=== PATIENT | female | born 1975 | race Caucasian/White ===

== ENCOUNTER 2020-11-26 22:11 | Emergency (ER) | payer SELFPAY ==
[~2020-11-26] VITALS: Ht 162 cm; Wt 54.5 kg
--- OUTSIDE RECORDS SUMMARY | 2020-11-26 22:17 | XMS REPORT ---
Author Lakesha López Organization [facility] Address [address] [place], [place] [id number] Care Team Providers Care District Service Manager Name Role Phone Evie Villela PCP Allergies and Adverse Reactions Name Reaction Notes PENICILLINS Cipro amoxicillin morphine Plan of Treatment Planned Activity Comments Planned Date Planned Time Plan/Goal CT ABD AND PELVIS W/O CONTRAST 05/13/2020 12:00 AM US SOFT TISSUES HEAD AND NECK 11/19/2020 12:00 AM TSH 11/25/2020 12:00 AM T4 FREE 11/25/2020 12:00 AM T3 FREE 11/25/2020 12:00 AM Thyroid antibody panel 11/25/2020 12:00 AM Medications Name Start Date Expiration Date SIG Comments prednisone 20 mg oral tablet 12/21/2019 03/20/2020 jenifer e 1 to 2 tablet (20 mg) by oral route once daily as needed for flares pantoprazole 40 mg oral tablet,delayed release (DR/EC) 05/13/2020 07/12/2020 take 1 tablet (40 mg) by oral route once daily for 30 days Problem List Description Status Onset Polyarthralgia Active 03/25/2020 Acute pain of both shoulders Active 03/25/2020 Rheumatoid arthritis Active 03/25/2020 Gluten intolerance Active 03/25/2020 Knee pain, bilateral Active 03/25/2020 Vitamin D deficiency Active 03/25/2020 Vital Signs Date Time BP-Sys(mm[Hg] BP-Corina(mm[Hg]) HR(bpm) RR(rpm) Temp WT HT HC BMI BSA BMI Percentile O2 Sat(%) 09/12/2020 9:02:00 AM 106 mm[Hg] 78 mm[Hg] 86 {beats}/min 18 rpm 98.1 F 113.312 lbs 64 in 19.4498 kg/m2 1.5235 m2 99 % 08/27/2020 8:02:00 AM 118 mm[Hg] 80 mm[Hg] 116 lbs 64 in 19.91 kg/m2 1.54 m2 05/13/2020 10:22:00 AM 106 mm[Hg] 74 mm[Hg] 100 {beats}/min 18 rpm 98.2 F 116 lbs 64 in 19.91 kg/m2 1.54 m2 100 % 03/25/2020 9:46:00 AM 104 mm[Hg] 68 mm[Hg] 101 {beats}/min 18 rpm 97.9 F 121 lbs 64 in 20.7694 kg/m2 1.5743 m2 98 % 12/21/2019 10:07:00 AM 100 mm[Hg] 70 mm[Hg] 75 {beats}/min 18 rpm 98.2 F 123.312 lbs 64 in 21.1663 kg/m2 1.59 m2 98 % Social History Name Description Comments Tobacco Current every day smoker History of Procedures Date Ordered Description Order Status 03/25/2020 12:00 AM COMPLETE CBC W/AUTO DIFF WBC Reviewed 03/25/2020 12:00 AM COMPREHEN METABOLIC PANEL Reviewed 03/25/2020 12:00 AM ASSAY THYROID STIM HORMONE Reviewed 03/25/2020 12:00 AM ASSAY OF FREE THYROXINE Reviewed 03/25/2020 12:00 AM VITAMIN D 25 HYDROXY Reviewed 03/25/2020 12:00 AM ANTINUCLEAR ANTIBODIES YUSEF Reviewed 03/25/2020 12:00 AM C-REACTIVE PROTEIN Reviewed 03/25/2020 12:00 AM RBC SED RATE AUTOMATED Reviewed 03/25/2020 12:00 AM ROUTINE VENIPUNCTURE Reviewed 08/27/2020 12:00 AM Blood Pressure Check-no charge Reviewed 10/02/2020 12:00 AM COVID-19 Testing Reviewed 10/30/2020 12:00 AM COMPREHEN METABOLIC PANEL Reviewed 10/30/2020 12:00 AM PROTOZOA ANTIBODY NOS Returned 10/30/2020 12:00 AM LYME DISEASE ANTIBODY Returned 10/30/2020 12:00 AM EHRLICHIA ANTIBODY Returned 10/30/2020 12:00 AM ROUTINE VENIPUNCTURE Reviewed 10/30/2020 12:00 AM MRI BRAIN STEM W/O & W/DYE Returned 10/30/2020 12:00 AM MRI NECK SPINE W/O DYE Returned 11/25/2020 12:00 AM ROUTINE VENIPUNCTURE Reviewed Results Summary Date and Description Results 03/25/2020 10:50 AM GLUCOSE 95 SODIUM 138 POTASS IUM 4.4 CHLORIDE 109.0 mmol/LCO2 23 BUN 23.0 mg/dLCREATININE 0.640 mg/dLSGOT/AST 18 SGPT/ALT 13 ALK PHOS 76 TOTAL PROTEIN 6.8 ALBUMIN 3.7 TOTAL BILI 0.4 CALCIUM 9.70 mg/dLAGE 44 GFR NonAA 102 GFR AA 124 eGFR 102 mL/min/1.73meGFR AA* >60 mL/min/1.73mTSH 0.51 FREE T4 1.08 VITAMIN D 28.3 C REACTIVE PROTEIN 2.0 mg/dLSEDRATE 22 WBC 5.7 RBC 5.08 HGB 15.50 g/dLHCT 46.10 %MCV 91.0 fLMCH 30.50 pgMCHC 33.60 g/dLRDW SD 41 %RDW CV 12.40 %MPV 10.70 fLPLT 243 x10E3/uLNRBC# 0.00 NRBC% 0.0 %NEUT 60.8 %LYMP 28.6 %MONO 7.6 %EOS 2.1 %BASO 0.7 #NEUT 3.45 #LYMP 1.62 #MONO 0.43 #EOS 0.12 #BASO 0.04 MANUAL DIFF NOT IND YUSEF Direct Positive Anti-DNA (DS) Ab Qn 1 ORACLE FUSION DEVELOPER Antibodies >8.0 Villela Antibodies 3.1 Sjogren's Anti-SS-A <0.2 Sjogren's Anti-SS-B <0.2 See below: COMMENT 10/02/2020 3:06 PM [id number] DETECTED 10/30/2020 9:15 AM GLUCOSE 88 SODIUM 140 POTASS IUM 4.4 CHLORIDE 101.0 mmol/LCO2 28 BUN 18.0 mg/dLCREATININE 0.50 mg/dLSGOT/AST 31 SGPT/ALT 17 ALK PHOS 88 TOTAL PROTEIN 6.9 ALBUMIN 3.7 TOTAL BILI 0.5 CALCIUM 9.90 mg/dLAGE 45 GFR NonAA 135 GFR AA 164 eGFR 135 mL/min/1.73meGFR AA* >60 mL/min/1.73m History Of Immunizations Not available. History of Past Illness Name Date of Onset Comments Rheumatoid arthritis 03/25/2020 Polyarthralgia 03/25/2020 Acute pain of both shoulders 03/25/2020 Gluten intolerance 03/25/2020 Knee pain, bilateral 03/25/2020 Vitamin D deficiency 03/25/2020 Rheumatoid arthritis Dec 21 2019 10:16AM Migraine Dec 21 2019 10:16AM Tension Headache Dec 21 2019 10:16AM Situational stress Dec 21 2019 10:16AM Polyarthralgia Feb 2020 9:47AM Pain in right shoulder Feb 2020 9:47AM Pain in left shoulder Feb 2020 9:47AM Rheumatoid arthritis Feb 2020 9:47AM Gluten intolerance Feb 2020 9:47AM Pain in right knee Feb 2020 9:47AM Pain in left knee Feb 2020 9:47AM Pain in right shoulder Feb 2020 10:17AM Pain in left shoulder Feb 2020 10:17AM Gluten intolerance Feb 2020 10:17AM Pain in right knee Feb 2020 10:17AM Pain in left knee Feb 2020 10:17AM Polyarthralgia Feb 2020 10:17AM Rheumatoid arthritis Feb 2020 10:17AM Dizziness Feb 2020 10:17AM Vitamin D deficiency Feb 2020 10:17AM Fatigue Feb 2020 10:17AM Hair loss Feb 2020 10:17AM Cyst of ear canal May 13 2020 10:26AM Epigastric abdominal pain May 13 2020 10:26AM Left upper quadrant abdominal pain May 13 2020 10:26AM Hypertension, Benign Essential Aug 27 2020 8:06AM Rheumatoid arthritis Sep 12 2020 9:06AM Vitamin D deficiency Sep 12 2020 9:06AM Headache Sep 12 2020 9:06AM Hot flashes Sep 12 2020 9:06AM Encounter for laboratory testing for COVID-19 virus Oct 02 11:06AM Sore throat Oct 02 2020 11:06AM Polyarthralgia Oct 30 2020 9:11AM Fatigue Oct 30 2020 9:11AM Bitten or stung by nonvenomous insect an d other nonvenomous arthropods, initial encounter Sep 2020 9:11AM Headache Oct 30 2020 9:14AM Dizziness Oct 30 2020 9:14AM Rheumatoid arteritis Sep 2020 9:14AM Cervical radicular pain Oct 30 2020 9:14AM Thyroid nodule Nov 19 2020 12:37PM Goiter Nov 19 2020 12:37PM Goiter Nov 19 2020 12:38PM Thyroid nodule Nov 19 2020 12:38PM Payers Insurance Name Company Name Plan Name Plan Number Policy Number Isaac cy Group Number Start Date [facility] - COVID 19 Test [id number] N/A History of Encounters Visit Date Visit Type Provider 11/25/2020 Laboratory Evie Villela APRN 10/30/2020 Laboratory Evie Villela APRN 10/03/2020 Laboratory Evie Villela APRN 09/12/2020 Office visit Evie Villela APRN 08/27/2020 Nurse visit Marlene GARG RN 05/13/2020 Office visit Marlene GARG RN 03/25/2020 Office visit Evie Villela APRN 12/21/2019 Office visit Evie Villela APRN
--- OUTSIDE RECORDS SUMMARY | 2020-11-26 22:17 | XMS REPORT ---
Author Author Lakesha Villela Organization [facility] Address [address] [place], [place] [id number] Care Team Providers Care Seating Upholsterer Name Role Phone Evie Villela PCP Allergies and Adverse Reactions Name Reaction Notes PENICILLINS Cipro amoxicillin morphine Plan of Treatment Planned Activity Comments Planned Date Planned Time Plan/Goal CT ABD AND PELVIS W/O CONTRAST 05/13/2020 12:00 AM Tick-borne disease panel 10/30/2020 12:00 AM Tick-borne disease panel 10/30/2020 12:00 AM Tick-borne disease panel 10/30/2020 12:00 AM MRI BRAIN INC STEM W/WO CONTRAST 10/30/2020 12:00 AM MRI CERVICAL SPINE W/O CONTRAST 10/30/2020 12:00 AM Medications Name Start Date Expiration [...] COMPREHEN METABOLIC PANEL Reviewed 10/30/2020 12:00 AM ROUTINE VENIPUNCTURE Reviewed Results Summary [...] Direct Positive Anti-DNA (DS) Ab Qn 1 LABORER/KEY MAN Antibodies >8.0 Villela Antibodies 3.1 Sjogren's Anti-SS-A <0.2 Sjogren's Anti-SS-B <0.2 See below: COMMENT 10/02/2020 3:06 PM [id number] DETECTED 10/30/2020 9:15 AM GLUCOSE 88 SODIUM [...] 10:17AM Fatigue Feb 2020 10:17AM Hair loss b 2020 10:17AM Cyst of ear canal May [...] an d other nonvenomous arthropods, initial encounter Oct 30 2020 9:11AM Headache Oct 30 2020 9:14AM Dizziness Oct 30 2020 9:14AM Rheumatoid arteritis Oct 30 2020 9:14AM Cervical radicular pain Oct 30 2020 9:14AM Payers Insurance Name Company Name Plan Name Plan Number Policy Number Isaac cy Group Number Start Date [employer] [place] [facility] - COVID 19 Test [id number] N/A History of Encounters Visit Date Visit Type Provider 10/30/2020 Laboratory Evie Villela APRN 10/03/2020 Laboratory Evie Villela APRN 09/12/2020 Office visit Evie Villela APRN 08/27/2020 Nurse visit Marlene GARG RN 05/13/2020 Office visit Marlene GARG RN 03/25/2020 Office visit Evie Villela APRN 12/21/2019 Office visit Evie Villela APRN
--- OUTSIDE RECORDS SUMMARY | 2020-11-26 22:17 | XMS REPORT ---
Author Lakesha López Organization [facility] Address [address] [place], [place] [id number] Care Team Providers Care Fabric Machine Operator Name Role Phone Evie Villela PCP Allergies and Adverse Reactions Name Reaction Notes PENICILLINS Cipro amoxicillin morphine Plan of Treatment Planned Activity Comments Planned Date Planned Time Plan/Goal CT ABD AND PELVIS W/O CONTRAST 05/13/2020 12:00 AM TSH 11/19/2020 12:00 AM T4 FREE 11/19/2020 12:00 AM T3 FREE 11/19/2020 12:00 AM Thyroid antibody panel 11/19/2020 12:00 AM US SOFT TISSUES HEAD AND NECK 11/19/2020 12:00 AM Medications Name Start Date Expiration [...] AM MRI NECK SPINE W/O DYE Returned Results Summary Date and Description Results 03/25/2020 [...] Direct Positive Anti-DNA (DS) Ab Qn 1 SOCIOLOGY ADJUNCT INSTRUCTOR Antibodies >8.0 Villela Antibodies 3.1 Sjogren's Anti-SS-A <0.2 Sjogren's Anti-SS-B <0.2 See below: COMMENT 10/02/2020 3:06 PM [id number] DETECTED 10/30/2020 9:15 AM GLUCOSE 88 SODIUM [...] Sore throat Oct 02 2020 11:06AM Polyarthralgia Sep 2020 9:11AM Fatigue Sep 2020 9:11AM Bitten or stung by nonvenomous insect an d other nonvenomous arthropods, initial encounter Sep 2020 9:11AM Headache Sep 2020 9:14AM Dizziness Sep 2020 9:14AM Rheumatoid arteritis Sep 2020 9:14AM Cervical radicular pain Sep 2020 9:14AM Thyroid nodule Nov 19 2020 12:37PM Goiter Nov 19 2020 12:37PM Goiter Nov 19 2020 12:38PM Thyroid nodule Nov 19 2020 12:38PM Payers Insurance Name Company Name Plan Name Plan Number Policy Number Isaac cy Group Number Start Date [facility] - COVID 19 Test [id number] N/A History of Encounters Visit Date Visit Type Provider 10/30/2020 Laboratory Evie Villela APRN 10/03/2020 Laboratory Evie Villela APRN 09/12/2020 Office visit Evie Villela APRN 08/27/2020 Nurse visit Marlene GARG RN 05/13/2020 Office visit Marlene GARG RN 03/25/2020 Office visit Evie Villela APRN 12/21/2019 Office visit Evie Villela APRN
--- OUTSIDE RECORDS SUMMARY | 2020-11-26 22:17 | XMS REPORT ---
Author Lakesha López Organization [facility] Address [address] [place], [place] [id number] Care Team Providers Care Supervisor Home Restoration Service Name Role Phone Evie Villela PCP Allergies and Adverse Reactions Name Reaction Notes PENICILLINS Cipro amoxicillin morphine Plan of Treatment Planned Activity Comments Planned Date Planned Time Plan/Goal CT ABD AND PELVIS W/O CONTRAST 05/13/2020 12:00 AM TSH 11/19/2020 12:00 AM T4 FREE 11/19/2020 12:00 AM T3 FREE 11/19/2020 12:00 AM Thyroid antibody panel 11/19/2020 12:00 AM Medications Name Start Date [...] AM COVID-19 Testing Reviewed 10/30/2020 12:00 AM [employer]EN METABOLIC PANEL Reviewed 10/30/2020 12:00 AM PROTOZOA [...] Direct Positive Anti-DNA (DS) Ab Qn 1 CIGARETTE MACHINES MECHANIC Antibodies >8.0 Villela Antibodies 3.1 Sjogren's Anti-SS-A <0.2 Sjogren's Anti-SS-B <0.2 See below: COMMENT 10/02/2020 3:06 PM [id number] DETECTED 10/30/2020 9:15 AM GLUCOSE 88 SODIUM [...] 2020 11:06AM Polyarthralgia Sep 2020 9:11AM Fatigue Oct 30 2020 9:11AM Bitten or stung by nonvenomous insect an d other nonvenomous arthropods, initial encounter Oct 30 2020 9:11AM Headache Oct 30 2020 9:14AM Dizziness Oct 30 2020 9:14AM Rheumatoid arteritis Sep 2020 9:14AM Cervical radicular pain Sep 2020 9:14AM Thyroid nodule Nov 19 2020 12:37PM Goiter Sep 2020 12:37PM Payers Insurance Name Company Name Plan Name Plan Number Policy Number Isaac cy Group Number Start Date [employer] [facility] 19 Test [id number] N/A History of Encounters Visit Date Visit Type Provider 10/30/2020 Laboratory Evie Villela APRN 10/03/2020 Laboratory Evie Villela APRN 09/12/2020 Office visit Evie Villela INTERACTIVE DESIGNER 08/27/2020 Nurse visit Marlene GARG RN 05/13/2020 Office visit Marlene GARG RN 03/25/2020 Office visit Evie Villela INTERACTIVE DESIGNER 12/21/2019 Office visit Evie Villela APRN
--- OUTSIDE RECORDS SUMMARY | 2020-11-26 22:17 | XMS REPORT ---
Author Lakesha López Organization [facility] Address [address] [place], [place] [address] Care Team Providers Care Wireless Sales Manager Name Role Phone Evie Villela PCP [...] Direct Positive Anti-DNA (DS) Ab Qn 1 SERVICE OPERATOR Antibodies >8.0 Villela Antibodies 3.1 Sjogren's Anti-SS-A <0.2 Sjogren's Anti-SS-B <0.2 See below: COMMENT 10/02/2020 3:06 PM [id number] DETECTED 10/30/2020 9:15 AM GLUCOSE 88 SODIUM [...] Number Isaac cy Group Number Start Date [facility] - COVID 19 Test [id number] N/A History of Encounters Visit Date Visit Type Provider 11/25/2020 Laboratory Evie Villela APRN 10/30/2020 Laboratory Evie Villela APRN 10/03/2020 Laboratory Evie Villela APRN 09/12/2020 Office visit Evie Villela APRN 08/27/2020 Nurse visit Marlene GARG RN 05/13/2020 Office visit Marlene GARG RN 03/25/2020 Office visit Evie Villela APRN 12/21/2019 Office visit Evie Villela APRN
--- OUTSIDE RECORDS SUMMARY | 2020-11-26 22:17 | XMS REPORT ---
Author Author Lakesha Villela Organization [facility] Address [address] [place], [place] [address] Care Team Providers Care Document Management Consultant Name Role Phone Evie Villela PCP Allergies [...] Direct Positive Anti-DNA (DS) Ab Qn 1 GEOGRAPHY TEACHER Antibodies >8.0 Villela Antibodies 3.1 Sjogren's Anti-SS-A <0.2 Sjogren's Anti-SS-B <0.2 See below: COMMENT 10/02/2020 3:06 PM [id number] DETECTED 10/30/2020 9:15 AM GLUCOSE 88 SODIUM [...] Number Isaac cy Group Number Start Date [facility] - COVID 19 Test [id number] N/A History of Encounters Visit Date Visit Type Provider 10/30/2020 Laboratory Evie Villela APRN 10/03/2020 Laboratory Evie Villela APRN 09/12/2020 Office visit Evie Villela APRN 08/27/2020 Nurse visit Marlene GARG RN 05/13/2020 Office visit Marlene GARG RN 03/25/2020 Office visit Evie Villela APRN 12/21/2019 Office visit Evie Villela APRN
--- OUTSIDE RECORDS SUMMARY | 2020-11-26 22:17 | XMS REPORT ---
Author Author Lakesha Villela Organization [facility] Address [address] [place], [place] [id number] Care Team Providers Care Release Of Information Specialist Name Role Phone Evie Villela PCP Allergies and Adverse Reactions Name Reaction Notes PENICILLINS Cipro amoxicillin morphine Plan of Treatment Planned Activity Comments Planned Date Planned Time Plan/Goal CT ABD AND PELVIS W/O CONTRAST 05/13/2020 12:00 AM MRI BRAIN INC STEM W/WO [...] AM COVID-19 Testing Reviewed 10/30/2020 12:00 AM [employer] METABOLIC PANEL Reviewed 10/30/2020 12:00 AM PROTOZOA ANTIBODY NOS Returned 10/30/2020 12:00 AM LYME DISEASE ANTIBODY Returned 10/30/2020 12:00 AM EHRLICHIA ANTIBODY Returned 10/30/2020 12:00 AM ROUTINE VENIPUNCTURE Reviewed Results [...] Direct Positive Anti-DNA (DS) Ab Qn 1 FIELD CARE MANAGER Antibodies >8.0 Villela Antibodies 3.1 Sjogren's Anti-SS-A <0.2 Sjogren's Anti-SS-B <0.2 See below: COMMENT 10/02/2020 3:06 PM [id number] DETECTED 10/30/2020 9:15 AM GLUCOSE 88 SODIUM [...] Number Isaac cy Group Number Start Date [email or web address] [facility] - COVID 19 Test [id number] N/A History of Encounters Visit Date Visit Type Provider 10/30/2020 Laboratory Evie Villela APRN 10/03/2020 Laboratory Evie Villela APRN 09/12/2020 Office visit Evie Villela APRN 08/27/2020 Nurse visit Marlene GARG RN 05/13/2020 Office visit Marlene GARG RN 03/25/2020 Office visit Evie Villela APRN 12/21/2019 Office visit Evie Villela APRN
--- OUTSIDE RECORDS SUMMARY | 2020-11-26 22:18 | XMS REPORT ---
Author Author Lakesha Villela Organization [facility] Address [address] [place], [place] [address] Care Team Providers Care Email Designer Name Role Phone Evie Villela PCP Allergies and Adverse Reactions Name Reaction Notes PENICILLINS Cipro amoxicillin morphine Plan of Treatment Planned Activity Comments Planned Date Planned Time Plan/Goal CT ABD AND PELVIS W/O CONTRAST 05/13/2020 12:00 AM CMP 10/30/2020 12:00 AM Tick-borne disease panel 10/30/2020 12:00 AM Tick-borne disease panel 10/30/2020 12:00 AM Tick-borne disease panel 10/30/2020 12:00 AM Medications Name Start Date [...] AM COVID-19 Testing Reviewed 10/30/2020 12:00 AM ROUTINE VENIPUNCTURE Reviewed [...] 1.08 VITAMIN D 28.3 C REACTIVE PROTEIN 20.0 mg/LSEDRATE 22 WBC 5.7 RBC 5.08 HGB 15.50 g/dLHCT 46.10 %MCV 91.0 fLMCH 30.50 pgMCHC 33.60 g/dLRDW SD 41 %RDW CV 12.40 %MPV 10.70 fLPLT 243 x10E3/uLNRBC# 0.00 NRBC% 0.0 %NEUT 60.8 %LYMP 28.6 %MONO 7.6 %EOS 2.1 %BASO 0.7 #NEUT 3.45 #LYMP 1.62 #MONO 0.43 #EOS 0.12 #BASO 0.04 MANUAL DIFF NOT IND YUSEF Direct Positive Anti-DNA (DS) Ab Qn 1 INFRASTRUCTURE DIRECTOR Antibodies >8.0 Villela Antibodies 3.1 Sjogren's Anti-SS-A <0.2 Sjogren's Anti-SS-B <0.2 See below: COMMENT 10/02/2020 3:06 PM [id number] DETECTED History Of Immunizations Not available. History of Past Illness Name Date of Onset Comments Rheumatoid arthritis 03/25/2020 Polyarthralgia 03/25/2020 Acute pain of both shoulders 03/25/2020 Gluten intolerance 03/25/2020 Knee pain, bilateral 03/25/2020 Vitamin D deficiency 03/25/2020 Rheumatoid arthritis Dec 21 2019 10:16AM Migraine Dec 21 2019 10:16AM Tension Headache Dec 21 2019 10:16AM Situational stress Dec 21 2019 10:16AM Polyarthralgia b 2020 9:47AM Pain in right shoulder b 2020 9:47AM Pain in left shoulder b 2020 9:47AM Rheumatoid arthritis b 2020 9:47AM Gluten intolerance b 2020 9:47AM Pain in right knee b 2020 9:47AM Pain in left knee b 2020 9:47AM Pain in right shoulder b 2020 10:17AM Pain in left shoulder b 2020 10:17AM Gluten intolerance b 2020 10:17AM Pain in right knee b 2020 10:17AM Pain in left knee b 2020 10:17AM Polyarthralgia Mar 25 2020 10:17AM Rheumatoid arthritis Mar 25 2020 10:17AM Dizziness Mar 25 2020 10:17AM Vitamin D deficiency Mar 25 2020 10:17AM Fatigue Mar 25 2020 10:17AM Hair loss Mar 25 2020 10:17AM Cyst of ear canal May [...] arthropods, initial encounter Oct 30 2020 9:11AM Payers Insurance Name Company Name Plan Name Plan Number Policy Number Isaac cy Group Number Start Date [employer] - COVID 19 Test [id number] N/A History of Encounters Visit Date Visit Type Provider 10/30/2020 Laboratory Evie Villela APRN 10/03/2020 Laboratory Evie Villela APRN 09/12/2020 Office visit Evie Villela APRN 08/27/2020 Nurse visit Marlene GARG RN 05/13/2020 Office visit Marlene GARG RN 03/25/2020 Office visit Evie Villela APRN 12/21/2019 Office visit Evie Villela APRN
--- OUTSIDE RECORDS SUMMARY | 2020-11-26 22:18 | XMS REPORT ---
Author Author Lakesha Villela Organization [facility] Address [address] [place], [place] [phone] Care Team Providers Care Instrument Lens Grinder Apprentice Name Role Phone Evie Villela PCP Allergies and Adverse Reactions Name Reaction Notes PENICILLINS Cipro amoxicillin morphine Plan of Treatment Planned Activity Comments Planned Date Planned Time Plan/Goal CT ABD AND PELVIS W/O CONTRAST 05/13/2020 12:00 AM Medications Name Start Date Expiration [...] 12:00 AM Blood Pressure Check-no charge Reviewed Results Summary Date and Description Results [...] Direct Positive Anti-DNA (DS) Ab Qn 1 AUGER MACHINE OFFBEARER Antibodies >8.0 V[place]la Antibodies 3.1 Sjogren's Anti-SS-A <0.2 Sjogren's Anti-SS-B <0.2 See below: COMMENT History Of Immunizations Not available. History of [...] Feb 2020 9:47AM Pain in right shoulder b 2020 9:47AM Pain in left shoulder b 2020 9:47AM Rheumatoid arthritis b 2020 9:47AM Gluten intolerance b 2020 9:47AM Pain in right knee b 2020 9:47AM Pain in left knee b 2020 9:47AM Pain in right shoulder Feb 2020 10:17AM Pain in left shoulder b 2020 10:17AM Gluten intolerance b 2020 10:17AM Pain in right knee b 2020 10:17AM Pain in left knee b 2020 10:17AM Polyarthralgia b 2020 10:17AM Rheumatoid arthritis b 2020 10:17AM Dizziness Mar 25 2020 10:17AM [...] 11:06AM Sore throat Oct 02 2020 11:06AM Payers Not available. History of Encounters Visit Date Visit Type Provider 10/03/2020 Laboratory Evie Villela APRN 09/12/2020 Office visit Evie Villela APRN 08/27/2020 Nurse visit Marlene GARG RN 05/13/2020 Office visit Marlene GARG RN 03/25/2020 Office visit Evie Villela APRN 12/21/2019 Office visit Evie Villela APRN
--- OUTSIDE RECORDS SUMMARY | 2020-11-26 22:18 | XMS REPORT ---
Author Author Lakesha Villela Organization [facility] Address [address] [place], [place] [address] Care Team Providers Care Applications Instructor Name Role Phone Evie Villlea PCP Allergies and Adverse Reactions Name Reaction [...] Direct Positive Anti-DNA (DS) Ab Qn 1 SANDAL PARTS ASSEMBLER Antibodies >8.0 V[place]la Antibodies 3.1 Sjogren's Anti-SS-A [...]
--- OUTSIDE RECORDS SUMMARY | 2020-11-26 22:18 | XMS REPORT ---
Author Author Lakesha Villela Organization [facility] Address [address] [place], [place] [address] Care Team Providers Care Fur Blower Operator Name Role Phone Evie Villela PCP [...] INC STEM W/WO CONTRAST 10/30/2020 12:00 AM Medications Name Start [...] Direct Positive Anti-DNA (DS) Ab Qn 1 SEAMSTRESS FITTER Antibodies >8.0 V[place]la Antibodies 3.1 Sjogren's Anti-SS-A <0.2 Sjogren's Anti-SS-B <0.2 See below: COMMENT 10/02/2020 3:06 PM [id number] DETECTED History Of Immunizations Not available. History [...] b 2020 10:17AM Pain in left knee Feb 2020 10:17AM Polyarthralgia Feb 2020 10:17AM Rheumatoid arthritis b 2020 10:17AM Dizziness b 2020 10:17AM Vitamin D deficiency b 2020 10:17AM Fatigue b 2020 10:17AM Hair loss b 2020 10:17AM [...] 9:14AM Rheumatoid arteritis Oct 30 2020 9:14AM Payers Insurance Name Company Name Plan Name Plan Number Policy Number Isaac cy Group Number [facility] [place] [facility] Test [id number] N/A History of Encounters Visit Date Visit Type Provider 10/30/2020 Laboratory Evie Villela APRN 10/03/2020 Laboratory Evie Villela APRN 09/12/2020 Office visit Evie Villela APRN 08/27/2020 Nurse visit Marlene GARG RN 05/13/2020 Office visit Marlene GARG RN 03/25/2020 Office visit Evie Villela APRN 12/21/2019 Office visit Evie Villela APRN
--- OUTSIDE RECORDS SUMMARY | 2020-11-26 22:18 | XMS REPORT ---
Author Author Lakesha Villela Organization [facility] Address [address] [place], [place] [id number] Care Team Providers Care Shuttleless Loom Weaver Name Role Phone Evie Villela PCP Allergies [...] Reviewed 10/02/2020 12:00 AM COVID-19 Testing Reviewed Results Summary Date and Description Results [...] Direct Positive Anti-DNA (DS) Ab Qn 1 CENTRAL SUPPLY SUPERVISOR Antibodies >8.0 Villela Antibodies 3.1 Sjogren's Anti-SS-A <0.2 Sjogren's Anti-SS-B <0.2 See below: COMMENT 10/02/2020 3:06 PM [id number] DETECTED History Of Immunizations Not available. History [...] b 2020 10:17AM Pain in left shoulder Feb 2020 10:17AM Gluten intolerance b 2020 10:17AM Pain in right knee Feb 2020 10:17AM Pain in left knee b 2020 10:17AM Polyarthralgia b 2020 10:17AM Rheumatoid arthritis b 2020 10:17AM Dizziness b 2020 10:17AM Vitamin D deficiency Mar 25 2020 10:17AM Fatigue b 2020 10:17AM Hair [...] Sore throat Oct 02 2020 11:06AM Payers Insurance Name Company Name Plan Name Plan Number Policy Number Isaac cy Group Number Start Date [employer] - COVID 19 Test [id number] N/A History of Encounters Visit Date Visit Type Provider 10/03/2020 Laboratory Evie Villela APRN 09/12/2020 Office visit Evie Villela APRN 08/27/2020 Nurse visit Marlene GARG RN 05/13/2020 Office visit Marlene GARG RN 03/25/2020 Office visit Evie Villela APRN 12/21/2019 Office visit Evie Villela APRN
--- OUTSIDE RECORDS SUMMARY | 2020-11-26 22:18 | XMS REPORT ---
Author Author Lakesha Villela Organization [facility] Address [address] [place], [place] [id number] Care Team Providers Care Cad Programmer Name Role Phone Evie Villela PCP Allergies [...] AM COVID-19 Testing Reviewed 10/30/2020 12:00 AM [employer] METABOLIC PANEL Reviewed 10/30/2020 12:00 AM ROUTINE [...] Direct Positive Anti-DNA (DS) Ab Qn 1 ENERGY ADVISOR Antibodies >8.0 V[place]la Antibodies 3.1 Sjogren's Anti-SS-A <0.2 Sjogren's Anti-SS-B <0.2 See below: COMMENT 10/02/2020 3:06 PM [id number] DETECTED 10/30/2020 9:15 AM GLUCOSE 88 SODIUM [...] Situational stress Dec 21 2019 10:16AM Polyarthralgia Mar 25 2020 9:47AM Pain in right shoulder Mar 25 2020 9:47AM Pain in left shoulder Feb [...] 10:17AM Fatigue b 2020 10:17AM Hair loss Feb 2020 10:17AM [...] Number Isaac cy Group Number Start Date Equals[employer] - COVID 19 Test [id number] N/A History of Encounters Visit Date Visit Type Provider 10/30/2020 Laboratory Evie Villela DRY WALL PLASTERER 10/03/2020 Laboratory Evie Villela DRY WALL PLASTERER 09/12/2020 Office visit Evie Villela DRY WALL PLASTERER 08/27/2020 Nurse visit Marlene GARG RN 05/13/2020 Office visit Marlene GARG RN 03/25/2020 Office visit Evie Villela APRN 12/21/2019 Office visit Evie Villela APRN
--- OUTSIDE RECORDS SUMMARY | 2020-11-26 22:18 | XMS REPORT ---
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 History [...] 25 2020 9:47AM Pain in right shoulder b 2020 9:47AM Pain in left shoulder b 2020 9:47AM Rheumatoid arthritis Mar 25 2020 9:47AM Gluten intolerance Mar 25 2020 9:47AM Pain in right knee b 2020 9:47AM Pain in left knee b 2020 9:47AM Pain in right shoulder b 2020 10:17AM Pain in left shoulder b 2020 10:17AM Gluten intolerance b 2020 10:17AM Pain in right knee b 2020 10:17AM Pain in left knee Feb 2020 10:17AM Polyarthralgia Feb 2020 10:17AM Rheumatoid arthritis Feb 2020 10:17AM Dizziness b 2020 10:17AM Vitamin D deficiency Feb 2020 10:17AM Fatigue b 2020 10:17AM Hair [...] Number Isaac cy Group Number Start Date [place] - COVID 19 Test [id number] N/A History of Encounters Visit Date Visit Type Provider 10/30/2020 Laboratory Evie Villela APRN 10/03/2020 Laboratory Evie Villela APRN 09/12/2020 Office visit Evie Villela APRN 08/27/2020 Nurse visit Marlene GARG RN 05/13/2020 Office visit Marlene GARG RN 03/25/2020 Office visit Evie Villela APRN 12/21/2019 Office visit Evie Villela APRN
[2020-11-26 22:50] LABS: BASOPHILS % (AUTO) 1 % (0-10); EOSINOPHILS # (AUTO) 0.1 10^3/uL (0.0-0.3); EOSINOPHILS % (AUTO) 2 % (0-10); HEMATOCRIT 39 % (35-52); HEMOGLOBIN 13.3 g/dL (11.5-16.0); LYMPHOCYTES # (AUTO) 1.7 10^3/uL (1.0-4.0); LYMPHOCYTES % (AUTO) 28 % (12-44); MEAN CORPUSCULAR HEMOGLOBIN 31 pg (25-34); MEAN CORPUSCULAR HGB CONC 34 g/dL (32-36); MEAN CORPUSCULAR VOLUME 91 fL (80-99); MEAN PLATELET VOLUME 9.8 fL (9.0-12.2); MONOCYTES # (AUTO) 0.7 10^3/uL (0.0-1.0); MONOCYTES % (AUTO) 12 % (0-12); NEUTROPHILS # (AUTO) 3.4 10^3/uL (1.8-7.8); NEUTROPHILS % (AUTO) 57 % (42-75); PLATELET COUNT 217 10^3/uL (130-400); WHITE BLOOD COUNT 5.9 10^3/uL (4.3-11.0)
[2020-11-26 22:59] LABS: ALBUMIN 3.5 GM/DL (3.2-4.5); CHLORIDE 108 MMOL/L (98-107); POTASSIUM 3.9 MMOL/L (3.6-5.0); SODIUM 140 MMOL/L (135-145)
[2020-11-26 23:00] LABS: CALCIUM 9.7 MG/DL (8.5-10.1); PROTHROMBIN TIME PATIENT 13.8 SEC (12.2-14.7)
[2020-11-26 23:01] LABS: GLUCOSE 102 MG/DL (70-105); TOTAL PROTEIN 6.7 GM/DL (6.4-8.2)
[2020-11-26 23:02] LABS: CARBON DIOXIDE 21 MMOL/L (21-32)
[2020-11-26 23:03] LABS: BILIRUBIN,TOTAL 0.4 MG/DL (0.1-1.0)
[2020-11-26 23:05] LABS: ALKALINE PHOSPHATASE 81 U/L (40-136); CREATININE SERUM 0.68 MG/DL (0.60-1.30); GFR ESTIMATED 94
[2020-11-26 23:06] LABS: BUN/CREATININE RATIO 12
[2020-11-26 23:08] LABS: ALANINE AMINOTRANSFERASE 11 U/L (0-55); MAGNESIUM 1.7 MG/DL (1.6-2.4)
--- NOTE | 2020-11-26 23:13 | Diagnostic Imaging Report ---
INDICATION: Chest pain FINDINGS: The lungs are clear. No failure, effusion or pneumothorax. IMPRESSION: No acute appearing abnormality. Dictated by: Dictated on workstation # [id number]
[2020-11-26] MEDS ORDERED: LACTATED RINGERS 1,000 ML IV SCH (23:15)
--- NOTE | 2020-11-26 23:57 | ED Cardiac General ---
History of Present Illness General Chief Complaint: Cardiac/General Problems Stated Complaint: IRREGULAR HEART RATE Nursing Triage Note: PT PRESENTS TO THE ED C/O IRREGULAR HEART SENSATIONS THAT THE PATIENT DESCRIBES INTERMITTENT HARD THUMPS THAT ARE PERSISTENT FOR THE LAST FOUR DAYS. PT STATES SHE HAS A HX OF R.A AND HAS ALL THE MARKERS FOR LUPUS WELL NODULES ON HER THYROID. STATES HER PCP IS CURRENTLY PROCESSING A THYROID PANEL. DENIES CP. SOB, COLD OR COUGH Source: patient Exam Limitations: no limitations History of Present Illness Date Seen by Provider: Nov 26, 2020 Time Seen by Provider: 22:30 Initial Comments This 45-year-old woman presents to the emergency room with complaints of persistent palpitations. They have been present for a few weeks but worse over the last few days. She describes a recurrent heavy premature heartbeat followed by a pause. She denies any chest pain or shortness of breath. She is presently under work-up for thyroid nodules. Her primary care provider is Evie Villela. Her imaging studies have been done in [place]. She describes an unintentional 20 pound weight loss over the past year and some occasional dizziness. Allergies and Home Medications Allergies Coded Allergies: Penicillins (Verified Allergy, Severe, 11/26/20) ciprofloxacin (Verified Allergy, Severe, 11/26/20) morphine (Verified Adverse Reaction, Intermediate, 11/26/20) Patient Home Medication List Home Medication List Reviewed: Yes Review of Systems Review of Systems Constitutional: weight loss EENTM: No Symptoms Reported Respiratory: No Symptoms Reported Cardiovascular: See HPI Gastrointestinal: No Symptoms Reported Genitourinary: No Symptoms Reported Musculoskeletal: no symptoms reported Skin: no symptoms reported Psychiatric/Neurological: See HPI Endocrine: See HPI Hematologic/Lymphatic: No Symptoms Reported Past Whiyklf-Obocqe-Hxeqvn Hx Patient Social History Tobacco Use?: Yes Tobacco type used: Cigarettes Smoking Status: Current Everyday Smoker Substance use?: No Alcohol Use?: No Immunizations Up To Date Influenza Vaccine Up-to-Date: Yes; Up-to-Date Past Medical History Surgery/Hospitalization HX: R. ARTHRITIS. DX WITH MITRAL VALVE PROLAPSE. Surgeries: Yes Hysterectomy Respiratory: No Cardiac: No Neurological: No : No Reproductive Disorders: No Genitourinary: No Gastrointestinal: No Musculoskeletal: No Endocrine: Yes (Thyroid nodules) HEENT: No Cancer: No Psychosocial: No Physical Exam Vital Signs Vital Signs - First Documented 11/26/20 22:17 Temp 37.3 Pulse 118 Resp 20 B/P (MAP) 126/83 (97) Pulse Ox 98 O2 Delivery Room Air Capillary Refill : Less Than 3 Seconds Height, Weight, BMI Height: '" Weight: lbs. oz. 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 Norm as Tested Skin: Normal Color, Warm/Dry Progress/Results/Core Measures Results/Orders Lab Results Laboratory Tests Test 11/26/20 22:41 Range/Units White Blood Count 5.9 4.3-11.0 10^3/uL Red Blood Count 4.29 3.80-5.11 10^6/uL Hemoglobin 13.3 11.5-16.0 g/dL Hematocrit 39 35-52 % Mean Corpuscular Volume 91 80-99 fL Mean Corpuscular Hemoglobin 31 25-34 pg Mean Corpuscular Hemoglobin Concent 34 32-36 g/dL Red Cell Distribution Width 12.8 10.0-14.5 % Platelet Count 217 130-400 10^3/uL Mean Platelet Volume 9.8 9.0-12.2 fL Immature Granulocyte % (Auto) 0 % Neutrophils (%) (Auto) 57 42-75 % Lymphocytes (%) (Auto) 28 12-44 % Monocytes (%) (Auto) 12 0-12 % Eosinophils (%) (Auto) 2 0-10 % Basophils (%) (Auto) 1 0-10 % Neutrophils # (Auto) 3.4 1.8-7.8 10^3/uL Lymphocytes # (Auto) 1.7 1.0-4.0 10^3/uL Monocytes # (Auto) 0.7 0.0-1.0 10^3/uL Eosinophils # (Auto) 0.1 0.0-0.3 10^3/uL Basophils # (Auto) 0.0 0.0-0.1 10^3/uL Immature Granulocyte # (Auto) 0.0 0.0-0.1 10^3/uL Erythrocyte Sedimentation Rate 10 0-20 MM/HR Prothrombin Time 13.8 12.2-14.7 SEC INR Comment 1.0 0.8-1.4 Activated Partial Thromboplast Time 29 24-35 SEC Sodium Level 140 135-145 MMOL/L Potassium Level 3.9 3.6-5.0 MMOL/L Chloride Level 108 H 98-107 MMOL/L Carbon Dioxide Level 21 21-32 MMOL/L Anion Gap 11 5-14 MMOL/L Blood Urea Nitrogen 8 7-18 MG/DL Creatinine 0.68 0.60-1.30 MG/DL Estimat Glomerular Filtration Rate 94 BUN/Creatinine Ratio 12 Glucose Level 102 70-105 MG/DL Calcium Level 9.7 8.5-10.1 MG/DL Corrected Calcium 10.1 8.5-10.1 MG/DL Magnesium Level 1.7 1.6-2.4 MG/DL Total Bilirubin 0.4 0.1-1.0 MG/DL Aspartate Amino Transf (AST/SGOT) 17 5-34 U/L Alanine Aminotransferase (ALT/SGPT) 11 0-55 U/L Alkaline Phosphatase 81 40-136 U/L Myoglobin 21.8 10.0-92.0 NG/ML Troponin I < 0.028 <0.028 NG/ML Total Protein 6.7 6.4-8.2 GM/DL Albumin 3.5 3.2-4.5 GM/DL My Orders Orders - SYBIL WYNN MD Ekg Tracing (11/26/20 22:22) Monitor-Rhythm Ecg Trace Only (11/26/20 22:22) Cbc With Automated Diff (11/26/20 22:45) Magnesium (11/26/20 22:45) Chest 1 View, Ap/Pa Only (11/26/20 22:45) Comprehensive Metabolic Panel (11/26/20 22:45) Myoglobin Serum (11/26/20 22:45) Protime With Inr (11/26/20 22:45) Partial Thromboplastin Time (11/26/20 22:45) O2 (11/26/20 22:45) Ed Iv/Invasive Line Start (11/26/20 22:45) Erythrocyte Sedimentation Rate (11/26/20 22:46) Troponin I (11/26/20 22:41) Lactated Ringers (Lr 1000 Ml Iv Solution (11/26/20 23:15) Vital Signs/I&O 11/26/20 11/27/20 22:17 00:07 Temp 37.3 37.3 Pulse 118 105 Resp 20 20 B/P (MAP) 126/83 (97) 119/87 Pulse Ox 98 100 O2 Delivery Room Air Room Air Blood Pressure Mean: 97 Progress Progress Note : Progress Note Work-up was relatively unremarkable. PVCs were noted on the pvc monitor. Patient identified to these PVCs as the source of her palpitations while they were occurring. We discussed the nature of PVCs and the benign nature of infreq uent PVCs. See discharge instructions for more discussion. Initial ECG Impression Date: Nov 26, 2020 Initial ECG Impression Time: 22:22 Initial ECG Rate: 106 Initial ECG Rhythm: S.Tach Comment Sinus tachycardia with no ST elevation or depression. No abnormal intervals or axis deviation. Diagnostic Imaging Diagonstic Imaging: Xray Plain Films/CT/US/NM/MRI: chest Comments Chest x-ray viewed by me and report reviewed. See report below: NAME: [facility] REC#: [id number] PT STATUS: REG ER : 1975 PHYSICIAN: SYBIL WYNN MD ADMIT DATE: 11/26/20/ER Signed Date of Exam:11/26/20 CHEST 1 VIEW, AP/PA ONLY INDICATION: Chest pain FINDINGS: The lungs are clear. No failure, effusion or pneumothorax. IMPRESSION: No acute appearing abnormality. Dictated by: Dictated on workstation # [id number] Dict: 11/26/202310 Trans: 11/26/202330 [facility] [id number] Interpreted by: DINH CARLOS Electronically signed by: DINH CARLOS 11/26/202330 Departure Impression Primary Impression: Palpitations Additional Impression: PVC (premature ventricular contraction) Disposition: 01 HOME, SELF-CARE Condition: Improved Departure-Patient Inst. Decision time for Depature: 23:50 Patient Instructions: Palpitations (DC) Add. Discharge Instructions: Drink plenty of clear liquids to stay well-hydrated. Complete your thyroid work-up as previously directed. Follow-up with your primary care provider regarding further evaluation for your palpitations. Consider discussing cardiac monitoring with your primary care provider as this may help you understand if your palpitations are caused by any rhythm problems or premature ventricular contractions (PVC). Call with questions or concerns. Return to the ER if you have worsening symptoms. All discharge instructions reviewed with patient and/or family. Voiced understanding. SYBIL WYNN MD Nov 26, 2020 23:57
[2020-11-27 00:07] VITALS: BP 119/87
== END 2020-11-27 00:18 | disposition home or self-care (01) ==
LOC: ER 22:14
DX: R00.2 Palpitations (principal); I49.3 Ventricular premature depolarization; F17.210 Nicotine dependence, cigarettes, uncomplicated
CPT/HCPCS: 36415; 71045; 80053; 83735; 83874; 84484; 85025; 85610; 85652; 85730; 93005; 93041